=== PATIENT | male | born 1950 | race African-American/Black ===

== ENCOUNTER 2017-06-18 05:00 | Inpatient (IN) | payer OTHER ==
[~2017-06-18] VITALS: Ht 180.3 cm; Wt 90.7 kg
--- NOTE | 2017-06-18 12:23 | Operative Report ---
Operative/Inv Procedure Report Surgery Date: 06/18/17 Name of Procedure: Inspection of fusion mass L3 4 removal of segmental hardware L3 4 bilaterally laminectomies L3 L4 L5 bilaterally pedicle screw instrumentation fusion L3 4 5 bilaterally interdiscal cage with autologous bone graft placement L45. Neuro lysis left L5 nerve root. Lateral intertransverse process fusion with autologous morselized bone graft L3 4 5 bilaterally. Iliac crest bone graft harvest right morselized. Use of fluoroscopy construction of iliac crest with Master graft. 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 The previous incision was enlarged cephalad and caudad slightly. The dissection was carried over the dorsal elements with electrocautery. The deep retractors were placed in the fusion was inspected the superior rods were found to be loose at the the screws were found to be tight within the bone itself at the pedicle purchase level. The screws were removed 4. The channels were evaluated with a ball tip probe and found to be appropriately within bone. The high-speed bur was used to decorticate the lamina at L4-L5 and L3. She was debrided with the dental probe and revision laminectomies were performed bilaterally at L3 4 and 5 there is severe stenosis present at L4 5. For nomenclature purposes although there was lumbar sedation of S1 the levels are being described as third level up is 34 second-level up is 45. The surgery was from L3 to L5. After placement of pedicle screws in L3 4 and 5 bilaterally the neuro monitoring was used and responses were normal. A discectomy was performed on the left side and the disc was prepared for placement of interdiscal cage at L4 5. An incision was made over the right posterior iliac crest a subperiosteal dissection was carried laterally and the Heavenly retractor was placed gently. The osteotomes were used to collect cortical cancellus and cancellous bones along with the curettes. The wound was irrigated packed with Master graft Gelfoam closed in layers with a double suture with christiano in the skin. The cage trials were used and a 10 mm cage was selected packed with bone graft and tamped into position using fluoroscopy at the L45 level. The rods were contoured and placed within the Pedicles L3 and forward tightened and compression was applied and then L5 were tightened. Prior to compression the facets were debrided with the pencil point bur. The lateral intertransverse process region bilaterally was decorticated with the high-speed bur and bone graft was packed laterally for fusion of L3 4 and L4 5 bone graft was also placed underneath the rods over the area of the perforated and decorticated facets bilaterally at L4 5. The wound was copiously irrigated Gelfoam was laid over the laminotomy site fluoroscopy was used to evaluate position and found to be appropriate the wound was again irrigated and a closure the lumbodorsal fashion subcutaneous tissue was performed with absorbable suture the skin was closed with christiano sterile dressings were applied the platelet patient was taken the recovery room in the stretcher.
--- NOTE | 2017-06-18 12:50 | RADIOLOGY REPORT ---
EXAMINATION: XR LUMBOSACRAL SPINE CLINICAL INFORMATION: Revision laminectomy L3-L5 with fusion. COMPARISON: Plain film lumbar spine series dated 09/27/2014. TECHNIQUE: Intraoperative images of the lumbar spine.. FINDINGS: Multiple intraoperative images show orthopedic hardware present at the L3-L5 levels. 4 fluoroscopic images are submitted. Total fluoroscopic imaging time 0.1 minutes. Total cumulative dose 3.01 mg.
[2017-06-18 13:42] LABS: ABSOLUTE BASOPHIL COUNT 0 /CUMM (0.0-0.2); ABSOLUTE EOSINOPHIL COUNT 0 /CUMM (0.0-0.7); ABSOLUTE GRANULOCYTE CT 4.3 /CUMM (1.4-6.5); ABSOLUTE LYMPH COUNT 0.9 /CUMM (1.2-3.4); ABSOLUTE MONOCYTE COUNT 0.1 /CUMM (0.10-0.60); BASOPHIL % 0.2 % (0.0-2.0); EOSINOPHIL % 0.2 % (0-5); HEMATOCRIT 47.6 % (42-52); MEAN CORPUSCULAR HGB CONC 33.2 G/DL (33.0-37.0); MEAN CORPUSCULAR VOLUME 90.4 FL (80.0-94.0); MEAN PLATELET VOLUME 7.9 FL (7.4-10.4); PLATELET COUNT 144 /CUMM (130-400); RBC DISTRIBUTION WIDTH 12.9 % (11.5-14.5); RED BLOOD CELL CT 5.27 /CUMM (4.70-6.10); WHITE BLOOD CELL COUNT 5.3 /CUMM (4.8-10.8)
[2017-06-18 13:46] LABS: GRANULOCYTE % 80.9 % (42.2-75.2)
--- NOTE | 2017-06-18 13:50 | Patient Discharge Instructions ---
Acute Coronary Syndrome Inclusion Criteria At DC or during hospital stay patient has or had the following: ACS DIAGNOSIS No Discharge Core Measures Meds if any: Prescribed or Continued at Discharge Meds if any: NOT Prescribed or Continued at Discharge Congestive Heart Failure Inclusion Criteria At DC or during hospital stay patient has or had the following: CHF DIAGNOSIS No Discharge Core Measures Meds if any: Prescribed or Continued at Discharge Meds if any: NOT Prescribed or Continued at Discharge Cerebrovascular accident Inclusion Criteria At DC or during hospital stay patient has or had the following: CVA/TIA Diagnosis No Discharge Core Measures Meds if any: Prescribed or Continued at Discharge Meds if any: NOT Prescribed or Continued at Discharge Venous thromboembolism Inclusion Criteria VTE Diagnosis No VTE Type NONE VTE Confirmed by (Test) NONE Discharge Core Measures - Per Current guidelines, there needs to be overlap - treatment for the first 5 days of Warfarin therapy. - If discharged on Warfarin prior to 5 days of - overlap therapy, the patient will need to be - assessed for post discharge needs including - *Post discharge parental anticoagulation - *Warfarin and/or parental anticoagulation education - *Follow up date to check INR post discharge At least 5 days overlap therapy as Inpatient No Meds if any: Prescribed or Continued at Discharge Note: Overlap Therapy is Warfarin and Anticoagulant Meds if any: NOT Prescribed or Continued at Discharge
[2017-06-18] MEDS ORDERED: PERCOCET 5-3251 EACH PO (13:55)
[2017-06-18] MEDS ORDERED: MULTIVITAMINS1 EAC9 PO (13:55)
[2017-06-18] MEDS ORDERED: TYLENOL EXTRA500 M2 PO (13:55)
[2017-06-18] MEDS ORDERED: COLACE100 M1 PO (13:55)
[2017-06-18] MEDS ORDERED: DULCOLAX10 M1 RC (13:55)
[2017-06-18] MEDS ORDERED: OS-CAL 500+D31 EAC1 PO (13:55)
[2017-06-18] MEDS ORDERED: VITAMIN D31000 UNI2 PO (13:55)
[2017-06-18] MEDS ORDERED: MILK OF MA400 MG/52 PO (13:55)
[2017-06-18 16:00] VITALS: BP 134/70
--- NOTE | 2017-06-18 16:07 | PN- Orthopedic ---
Subjective Subjective: POC just arrived to floor, some back pain, asking for meds. no cp/sob/n/v. no void or po intake yet. joseph hudson'ed at end of case. Objective Vital Signs and I&Os Intake & Output 06/18 1600 06/18 0800 06/18 0000 06/17 1600 06/17 0800 06/17 0000 Intake Total Output Total Balance Patient 200 lb Weight Physical Exam: GEN- nad CARD-s1s2 rrr PULM-ctab ABD-soft nt BACK/EXT- dsg cdi, moves LE on command, +pedal pulses, calves soft nt, limited dorsi/plantar flexion Current Medications: Current Medications Sig/Ankita Start time Last Medication Dose Route Stop Time Status Admin Acetaminophen 650 MG Q4P PRN 06/18 1345 AC PO Acetaminophen 1,000 MG .STK-MED ONE 06/18 07 DC IV 06/18 0705 Bisacodyl 10 MG DAILY NEEDED PRN 06/18 1345 AC ND Calcium 600 MG BID 06/18 2200 AC PO Cefazolin Sodium 1,000 MG IQ8 06/18 1600 AC IV 06/19 0801 Cefazolin Sodium 2,000 MG ONCE 06/18 0000 NR IV 06/18 2359 Cholecalciferol 1,000 IU DAILY 06/19 1000 AC PO Docusate Sodium 100 MG TID 06/18 1600 AC PO Fentanyl Citrate 250 MCG .STK-MED ONE 06/18 07 DC IM 06/18 0705 Hydromorphone HCl 2 MG .STK-MED ONE 06/18 0703 DC IM 06/18 0704 Lactated Ringer's 1,000 ML Q10H 06/18 1345 AC IV Magnesium Hydroxide 30 ML Q8P PRN 06/18 1345 AC PO Midazolam HCl 2 MG .STK-MED ONE 06/18 07 DC IM 06/18 0705 Morphine Sulfate 1 MG Q3P PRN 06/18 1345 AC 06/18 IV 1618 Multivitamins 1 TAB DAILY 06/19 1000 AC PO Ondansetron HCl 4 MG Q6P PRN 06/18 1345 AC IV Oxycodone/ 1 TAB Q4P PRN 06/18 1345 AC Acetaminophen PO Oxycodone/ 2 TAB Q4P PRN 06/18 1345 AC Acetaminophen PO Remifentanil HCl 4 MG .STK-MED ONE 06/18 0704 DC IV 06/18 0705 Trimethobenzamide HCl 200 MG Q6P PRN 06/18 1345 AC IM Results Last 48 Hours of Labs: Laboratory Tests 06/18 1325 Hematology CBC w Diff NO MAN DIFF REQ WBC (4.8 - 10.8 /CUMM) 5.3 RBC (4.70 - 6.10 /CUMM) 5.27 Hgb (14.0 - 18.0 G/DL) 15.8 Hct (42 - 52 %) 47.6 MCV (80.0 - 94.0 FL) 90.4 MCH (27.0 - 31.0 PG) 30.0 MCHC (33.0 - 37.0 G/DL) 33.2 RDW (11.5 - 14.5 %) 12.9 Plt Count (130 - 400 /CUMM) 144 MPV (7.4 - 10.4 FL) 7.9 Gran % (42.2 - 75.2 %) 80.9 H Lymphocytes % (20.5 - 51.1 %) 17.7 L Monocytes % (1.7 - 9.3 %) 1.0 L Eosinophils % (0 - 5 %) 0.2 Basophils % (0.0 - 2.0 %) 0.2 Absolute Granulocytes (1.4 - 6.5 /CUMM) 4.3 Absolute Lymphocytes (1.2 - 3.4 /CUMM) 0.9 L Absolute Monocytes (0.10 - 0.60 /CUMM) 0.1 Absolute Eosinophils (0.0 - 0.7 /CUMM) 0 Absolute Basophils (0.0 - 0.2 /CUMM) 0 Assessment/Plan Assessment/Plan A- 67M POD0 sp revision lum lami/fusion with r posterior icbg, PMHx asthma (no meds), stable w appropriate postop pain P- prn pain meds OOB, ambulate, PT ebl 800, cellsaver used. pacu cbc ok. check am labs dsg change pod2 abx x23hr postop alps will dw attending Core Measures Venous Thromboembolism VTE Risk Factors Surgery No Mechanical VTE Prophylaxis d/t N/A MechProphylax Ordered No VTE Pharm Prophylaxis d/t Surgical Contraindication
[2017-06-18 20:10] VITALS: BP 122/80
[2017-06-19 07:23] VITALS: BP 120/80
--- NOTE | 2017-06-19 07:49 | PN- Orthopedic ---
Subjective Subjective: Patient comfortable, pain is controlled, no fever, no acute events overnight, no neurologic symptoms of lower extremities Urinating without difficulty Objective Vital Signs and I&Os Vital Signs Date Time Temp Pulse Resp B/P B/P Pulse O2 O2 Flow FiO2 Mean Ox Delivery Rate 06/19 0723 98.2 80 20 120/80 99 Nasal 3.0L Cannula 06/19 0000 Nasal 3.0L Cannula 06/18 2142 Nasal 3.0L Cannula 06/18 2009 98.2 80 20 122/80 97 06/18 1600 Nasal 3.0L Cannula 06/18 1600 97.3 70 18 134/70 98 Nasal 3.0L Cannula 06/18 1530 98 Nasal 3.0L Cannula Intake & Output 06/19 0800 06/19 0000 06/18 1600 06/18 0800 06/18 0000 06/17 1600 Intake Total 1080 1280 Output Total 800 850 Balance 280 430 Intake, IV 600 800 Intake, Oral 480 480 Number 0 Bowel Movements Output, Urine 800 850 Patient 200 lb 200 lb Weight Weight Reported by Patient Measurement Method Physical Exam: Well-developed well-nourished no apparent distress. HEENT: Atraumatic, extraocular motion intact Neck: Supple, no lymphadenopathy Respiratory: No respiratory distress Back: Dressing clean dry and intact Extremities: No edema, no calf pain Neuro: Alert and oriented x3 Neurovascularly intact bilateral lower extremities with sensation and motor grossly intact, no foot drop, no EHL weakness Psych: Mood affect normal, normal memory normal judgment. Skin: Warm and dry, no rash on exposed skin Results Last 48 Hours of Labs: Laboratory Tests 06/19 06/18 0737 1325 Hematology CBC w Diff Pending NO MAN DIFF REQ WBC (4.8 - 10.8 /CUMM) Pending 5.3 RBC (4.70 - 6.10 /CUMM) Pending 5.27 Hgb (14.0 - 18.0 G/DL) Pending 15.8 Hct (42 - 52 %) Pending 47.6 MCV (80.0 - 94.0 FL) Pending 90.4 MCH (27.0 - 31.0 PG) Pending 30.0 MCHC (33.0 - 37.0 G/DL) Pending 33.2 RDW (11.5 - 14.5 %) Pending 12.9 Plt Count (130 - 400 /CUMM) Pending 144 MPV (7.4 - 10.4 FL) Pending 7.9 Gran % (42.2 - 75.2 %) 80.9 H Lymphocytes % (20.5 - 51.1 %) 17.7 L Monocytes % (1.7 - 9.3 %) 1.0 L Eosinophils % (0 - 5 %) 0.2 Basophils % (0.0 - 2.0 %) 0.2 Absolute Granulocytes (1.4 - 6.5 /CUMM) 4.3 Absolute Lymphocytes (1.2 - 3.4 /CUMM) 0.9 L Absolute Monocytes (0.10 - 0.60 /CUMM) 0.1 Absolute Eosinophils (0.0 - 0.7 /CUMM) 0 Absolute Basophils (0.0 - 0.2 /CUMM) 0 Assessment/Plan Assessment/Plan 67M POD1 sp revision lum lami/fusion with r posterior icbg, prn pain meds OOB, ambulate, PT Follow this morning CBC dsg change pod2 abx x23hr postop alps DC IV fluids Regular diet Core Measures Venous Thromboembolism VTE Risk Factors Surgery No Mechanical VTE Prophylaxis d/t N/A MechProphylax Ordered No VTE Pharm Prophylaxis d/t Surgical Contraindication
[2017-06-19 08:43] LABS: ABSOLUTE BASOPHIL COUNT 0 /CUMM (0.0-0.2); ABSOLUTE EOSINOPHIL COUNT 0 /CUMM (0.0-0.7); ABSOLUTE GRANULOCYTE CT 8.2 /CUMM (1.4-6.5); ABSOLUTE LYMPH COUNT 1.4 /CUMM (1.2-3.4); ABSOLUTE MONOCYTE COUNT 0.4 /CUMM (0.10-0.60); BASOPHIL % 0.3 % (0.0-2.0); EOSINOPHIL % 0.1 % (0-5); MEAN CORPUSCULAR HGB 30.4 PG (27.0-31.0); MEAN CORPUSCULAR HGB CONC 33.9 G/DL (33.0-37.0); MEAN CORPUSCULAR VOLUME 89.6 FL (80.0-94.0); PLATELET COUNT 133 /CUMM (130-400); RBC DISTRIBUTION WIDTH 12.8 % (11.5-14.5); RED BLOOD CELL CT 4.58 /CUMM (4.70-6.10)
[2017-06-19 09:05] LABS: WHITE BLOOD CELL COUNT 9.9 /CUMM (4.8-10.8)
[2017-06-19 14:11] VITALS: BP 126/80
--- NOTE | 2017-06-19 15:48 | PN- Orthopedic ---
Subjective Subjective: Patient is c/o mild right anterior thigh pain (3/10) and expected postop incisional pain (7/10). patient ambulated with PT. No N/V, SOB, fever/chills. Patient tolerating Percocet. + Voiding and flatus. + appetite. Less preop pain. Review of Systems: Remarkable for the above complaints. Objective Vital Signs and I&Os Vital Signs Date Time Temp Pulse Resp B/P B/P Pulse O2 O2 Flow FiO2 Mean Ox Delivery Rate 06/19 1411 98.9 84 20 126/80 96 06/19 0723 98.2 80 20 120/80 99 Nasal 3.0L Cannula 06/19 0000 Nasal 3.0L Cannula 06/183 Nasal 3.0L Cannula 06/18 2009 98.2 80 20 122/80 97 06/18 1600 Nasal 3.0L Cannula 06/18 1600 97.3 70 18 134/70 98 Nasal 3.0L Cannula Intake & Output 06/19 1600 06/19 0800 06/19 0000 06/18 1600 06/18 0800 06/18 0000 Intake Total 900 1080 1280 Output Total 850 800 850 Balance 50 280 430 Intake, IV 100 600 800 Intake, Oral 800 480 480 Number 0 Bowel Movements Output, Urine 850 800 850 Patient 200 lb Weight Weight Reported by Patient Measurement Method Physical Exam General Appearance: well developed/nourished, alert, awake, mild distress Respiratory: normal breath sounds, no respiratory distress Cardiovascular: regular rate/rhythm Abdomen: soft, non-tender, distention (mild) Back: Incisions C/D/I. Dressings changed. Extremities: normal capillary refill, no edema Neurologic/Psychiatric: Neurovascularly intact and stable in bilateral lower extremities with no new or worsening gross motor or sensory loss. Reflexes: 2+: knee (R), knee (L), ankle (R), ankle (L). Skin: intact, normal color, warm/dry Current Medications: Current Medications Sig/Ankita Start time Last Medication Dose Route Stop Time Status Admin Acetaminophen 650 MG Q4P PRN 06/18 1345 AC PO Bisacodyl 10 MG DAILY NEEDED PRN 06/18 1345 AC AL Calcium 600 MG BID 06/18 2200 AC 06/19 PO 0756 Cefazolin Sodium 1,000 MG IQ8 06/18 1600 DC 06/19 IV 06/19 0801 0754 Cefazolin Sodium 2,000 MG ONCE 06/18 0000 DC IV 06/18 2359 Cholecalciferol 1,000 IU DAILY 06/19 1000 AC 06/19 PO 0756 Docusate Sodium 100 MG TID 06/18 1600 AC 06/19 PO 1424 Lactated Ringer's 1,000 ML Q10H 06/18 1345 DC 06/18 IV 2344 Magnesium Hydroxide 30 ML Q8P PRN 06/18 1345 AC PO Morphine Sulfate 1 MG Q3P PRN 06/18 1345 AC 06/19 IV 0033 Multivitamins 1 TAB DAILY 06/19 1000 AC 06/19 PO 0756 Ondansetron HCl 4 MG Q6P PRN 06/18 1345 AC IV Oxycodone/ 1 TAB Q4P PRN 06/18 1345 AC Acetaminophen PO Oxycodone/ 2 TAB Q4P PRN 06/18 1345 AC 06/19 Acetaminophen PO 1425 Patient Medication 1 ED ONE ONE 06/19 1200 DC Teaching ED 06/19 1201 Patient Medication 1 ED ONE ONE 06/19 0945 WI Teaching ED 06/19 0946 Trimethobenzamide HCl 200 MG Q6P PRN 06/18 1345 AC IM Assessment/Plan Assessment/Plan Assessment: S/p Rev. PLDF L3-L5 with Instr/ICBG Plan: Continue Percocet prn Ambulate with PT/Nursing Continue bowel regimen Ice prn pain Possible D/C to hotel in am. Will F/U in am Problem List: 1. History of asthma 2. S/P lumbar fusion Core Measures Venous Thromboembolism VTE Risk Factors Surgery No Mechanical VTE Prophylaxis d/t Early Ambulation No VTE Pharm Prophylaxis d/t Surgical Contraindication Attending MD Review Statement Attending Statement Attending MD Statement: examined this patient, discuss w/resident/PA/PATROL CONDUCTOR, agreed w/resident/PA/PATROL CONDUCTOR
[2017-06-19 22:16] VITALS: BP 136/70
[2017-06-20 06:57] VITALS: BP 130/80
--- NOTE | 2017-06-20 08:30 | Event Note ---
Event Note Event Note: Patient seen and evaluated by Dr. Adrian Iverson this am. I was called by Nanci Handy PA-C who spoke with Dr. Iverson and they agreed that the patient is appropriate for discharge today. I was asked to put in discharge order by Nanci.
[2017-06-20 14:47] VITALS: BP 140/70
--- NOTE | 2017-06-20 14:57 | PN- Orthopedic ---
Subjective Subjective: Patient c/o expected postop incisional pain. + bilateral ant. thigh discomfort with transitioning. No numbness or weakness. Sebastian. po. + appetite. + flatus and voiding without problems. + hiccups. Ambulating without difficulty. Sebastian. po Percocet. Review of Systems: Remarkable for the above complaints. Objective Vital Signs and I&Os Vital Signs Date Time Temp Pulse Resp B/P B/P Pulse O2 O2 Flow FiO2 Mean Ox Delivery Rate 06/20 1447 97.8 77 20 140/70 97 06/20 0657 98.7 85 20 130/80 94 06/20 0000 92 Room Air 06/196 99.4 88 20 136/70 92 Nasal Cannula Intake & Output 06/20 1600 06/20 0800 06/20 0000 06/19 1600 06/19 0800 06/19 0000 Intake Total 400 042 811 0633 1280 Output Total 2500 250 1040 850 800 850 Balance -2500 150 -240 50 280 430 Intake, IV 0 100 600 800 Intake, Oral 400 800 800 480 480 Number 0 0 Bowel Movements Output, Urine 2500 250 1040 850 800 850 Physical Exam General Appearance: well developed/nourished, alert, awake, comfortable Respiratory: normal breath sounds, chest non-tender, no respiratory distress Cardiovascular: regular rate/rhythm Abdomen: soft, non-tender, distention (mild) Back: Incisions C/D/I. Dressings changed. Extremities: no edema Neurologic/Psychiatric: Neurovascularly intact and stable with no new or worsening gross motor or sensory loss. Reflexes: 2+: knee (R), knee (L), ankle (R), ankle (L). Skin: intact, normal color, warm/dry Assessment/Plan Assessment/Plan Assessment: s/p Rev. PLDF L3-5 with Instr./ICBG Plan: Continue po Percocet Bowel regimen Do's and Don'ts explained. Disch. Instr. given D/C to [facility] Will F/U as outpatient. Problem List: 1. History of asthma 2. S/P lumbar fusion Core Measures Venous Thromboembolism VTE Risk Factors Surgery No Mechanical VTE Prophylaxis d/t Early Ambulation No VTE Pharm Prophylaxis d/t Surgical Contraindication Attending MD Review Statement Attending Statement Attending MD Statement: examined this patient, discuss w/resident/PA/BREAD RACKER, agreed w/resident/PA/BREAD RACKER
== END 2017-06-20 20:20 | DRG 454 ==
LOC: UNDOADMIN 05:00 → SDA 05:00 → ENRESERV 13:29 → ENTRNSPT 14:23 → EDTRNSPTSTS 15:01 → 2NA 15:11 → CMPTRNSPT 15:19 → ENPENDDIS 06-20 08:53 → 2NA 06-20 20:20
PROVIDERS: Orthopaedic Surgery Orthopaedic Surgery of the Spine
PROC: 0SG10AJ Fusion of 2 or more Lumbar Vertebral Joints with Interbody Fusion Device, Posterior Approach, Anterior Column, Open Approach (ICD-10-PCS; principal; 2017-06-18)
PROC: 4A11X4G Monitoring of Peripheral Nervous Electrical Activity, Intraoperative, External Approach (ICD-10-PCS; principal; 2017-06-18)
PROC: 0SB20ZZ Excision of Lumbar Vertebral Disc, Open Approach (ICD-10-PCS; principal; 2017-06-18)
PROC: 0SG1071 Fusion of 2 or more Lumbar Vertebral Joints with Autologous Tissue Substitute, Posterior Approach, Posterior Column, Open Approach (ICD-10-PCS; principal; 2017-06-18)
PROC: 01NB0ZZ Release Lumbar Nerve, Open Approach (ICD-10-PCS; principal; 2017-06-18)
PROC: 0QP004Z Removal of Internal Fixation Device from Lumbar Vertebra, Open Approach (ICD-10-PCS; principal; 2017-06-18)
PROC: 0QB20ZZ Excision of Right Pelvic Bone, Open Approach (ICD-10-PCS; principal; 2017-06-18)
DX: M51.36 Other intervertebral disc degeneration, lumbar region (principal); M96.0 Pseudarthrosis after fusion or arthrodesis; J45.909 Unspecified asthma, uncomplicated; M48.061 Spinal stenosis, lumbar region without neurogenic claudication; Y83.8 Other surgical procedures as the cause of abnormal reaction of the patient, or of later complication, without mention of misadventure at the time of the procedure
CPT/HCPCS: 2NAP; 36592; 72100; 97116-GO; 97161-GP; 97530-GO; C1713; C9399; J0131; J0690; J1644; J2405; J3250; J3490; J7120